=== PATIENT | female | born 1995 | race Caucasian/White ===

== ENCOUNTER 2018-07-16 13:09 | Emergency (ER) | payer BC ==
[~2018-07-16] VITALS: Ht 172.7 cm; Wt 47.6 kg
[2018-07-16 14:36] LABS: ABSOLUTE NEUTROPHILS 5.9 thou/uL (1.4-8.2); BASOPHILS 0.4 % (0.0-2.0); EOSINOPHILS 0.9 % (0.0-3.0); HEMATOCRIT 38.8 % (37.0-47.0); HEMOGLOBIN 13.1 gm/dL (12.0-15.0); LYMPHOCYTES 16.5 % (24.0-44.0); MCH 30.7 pg (26.0-34.0); MCHC 33.7 g/dL (28.0-37.0); MCV 91.1 fL (80.0-100.0); MONOCYTES 9.4 % (1.0-8.0); PLATELET COUNT 223 thou/uL (150-400); POLYS 72.8 % (36.0-66.0); RBC 4.26 mil/uL (4.20-5.00); RDW 13.2 % (10.5-14.5); WBC 8.2 thou/uL (4.0-11.0)
[2018-07-16 14:46] LABS: CALCIUM 8.9 mg/dL (8.5-10.1); CREATININE 0.9 mg/dL (0.6-1.0); POTASSIUM 3.9 mmol/L (3.5-5.1)
[2018-07-16] MEDS ORDERED: VENTOLIN HFA 1818 GM INH (15:21)
[2018-07-16 15:38] VITALS: BP 126/64
== END 2018-07-16 15:40 | disposition home or self-care (01) ==
LOC: ER 13:09
PROVIDERS: Student in an Organized Health Care Education/Training Program
DX: R05 Cough (principal); F17.210 Nicotine dependence, cigarettes, uncomplicated; K31.84 Gastroparesis

== ENCOUNTER 2020-01-17 06:58 | Inpatient (IN) | payer OTHER ==
[~2020-01-17] VITALS: Ht 170.2 cm; Wt 49.9 kg
[~2020-01-17 06:58] MED LIST: VENTOLIN HFA 1818 GM INH
[2020-01-17 07:00] VITALS: BP 115/70
[2020-01-17 07:35] LABS: ABSOLUTE NEUTROPHILS 5.1 thou/uL (1.4-8.2); BASOPHILS 0.4 % (0.0-2.0); HEMATOCRIT 37.9 % (37.0-47.0); HEMOGLOBIN 12.9 gm/dL (12.0-15.0); LYMPHOCYTES 26.3 % (24.0-44.0); MCH 32.4 pg (26.0-34.0); MCHC 34.1 g/dL (28.0-37.0); MONOCYTES 6.4 % (1.0-8.0); PLATELET COUNT 311 thou/uL (150-400); POLYS 65.9 % (36.0-66.0); RBC 3.99 mil/uL (4.20-5.00); RDW 13.3 % (10.5-14.5); WBC 7.7 thou/uL (4.0-11.0)
[2020-01-17 07:40] LABS: URINE BILIRUBIN NEGATIVE (Negative); URINE BLOOD NEGATIVE (Negative); URINE CLARITY CLEAR; URINE COLOR YELLOW; URINE GLUCOSE-RANDOM* NEGATIVE (Negative); URINE KETONES NEGATIVE (Negative); URINE LEUKOCYTES-REFLEX NEGATIVE (Negative); URINE NITRITE-REFLEX NEGATIVE (Negative); URINE PROTEIN (DIPSTICK) NEGATIVE (Negative); URINE SPECIFIC GRAVITY 1.025 (1.005-1.035); URINE UROBILINOGEN 0.2 E.U./dl (0.2-1.0)
[2020-01-17 07:45] LABS: CALCIUM 8.7 mg/dL (8.5-10.1); POTASSIUM 3.8 mmol/L (3.5-5.1)
[2020-01-17 07:51] LABS: ALBUMIN 3.8 g/dL (3.4-5.0); TOTAL BILIRUBIN 0.4 mg/dL (0.2-1.0); TOTAL PROTEIN 7.1 g/dL (6.4-8.2)
[2020-01-17 15:37] VITALS: BP 100/48
[2020-01-17 16:07] VITALS: BP 102/53
[2020-01-17 17:10] VITALS: BP 121/56
[2020-01-17] MEDS ORDERED: OMEPRAZOLE 20 M20 M1 PO (19:09)
[2020-01-17] MEDS ORDERED: MELATONIN10 M3 PO (19:11)
[2020-01-17 19:20] VITALS: BP 103/52
--- NOTE | 2020-01-17 19:46 | NUR ---
Assumed pt late this pm from the ER, admission requirements done. Fluids restarted from the ER, awaiting loading dose of IV abx that should have been given at the ER, as per pharmacy this will be brought up to the [facility]. Mother was at the bedside. POC followed with no sign or verbalization of distress noted. endorsed to the night nurse.
[2020-01-18 05:41] LABS: ABSOLUTE NEUTROPHILS 2.3 thou/uL (1.4-8.2); BASOPHILS 0.7 % (0.0-2.0); EOSINOPHILS 2.2 % (0.0-3.0); HEMOGLOBIN 11.4 gm/dL (12.0-15.0); LYMPHOCYTES 49.1 % (24.0-44.0); MCH 32.2 pg (26.0-34.0); MCHC 33.6 g/dL (28.0-37.0); MCV 96.1 fL (80.0-100.0); MONOCYTES 7.4 % (1.0-8.0); PLATELET COUNT 241 thou/uL (150-400); POLYS 40.6 % (36.0-66.0); RBC 3.54 mil/uL (4.20-5.00); WBC 5.7 thou/uL (4.0-11.0)
--- NOTE | 2020-01-18 05:47 | NUR ---
VSS-AFEBRILE. LUNGS CLEAR-ROOM AIR. ABDOMINAL PAIN WELL CONTROLLED WITH IV MORPHINE PRN. RESTED WELL THROUGH NIGHT WITH FEW NEEDS. NO REPORTED NAUSEA/VOMITING OVERNIGHT. CALLS APPROPRIATELY FOR ANY NEEDED ASSISTANCE.
[2020-01-18 06:03] LABS: CALCIUM 8.2 mg/dL (8.5-10.1); MAGNESIUM 1.8 mg/dL (1.8-2.4); POTASSIUM 3.7 mmol/L (3.5-5.1)
[2020-01-18 08:37] LABS: ALBUMIN 3.1 g/dL (3.4-5.0); DIRECT BILIRUBIN 0.2 mg/dL (<0.1-0.2); TOTAL BILIRUBIN 1.3 mg/dL (0.2-1.0)
[2020-01-18 08:47] VITALS: BP 102/53
[2020-01-18 15:42] VITALS: BP 106/50
[2020-01-18 18:12] VITALS: BP 106/50
[2020-01-18 18:17] VITALS: BP 106/50
[2020-01-18 20:00] VITALS: BP 114/61
[2020-01-19 06:34] LABS: ALBUMIN 2.9 g/dL (3.4-5.0); DIRECT BILIRUBIN 0.1 mg/dL (<0.1-0.2); TOTAL BILIRUBIN 1.1 mg/dL (0.2-1.0); TOTAL PROTEIN 5.9 g/dL (6.4-8.2)
[2020-01-19 08:01] VITALS: BP 111/56
--- NOTE | 2020-01-19 10:00 | NUR ---
Assumed pt care at 7am.Assessment completed.vss.Pt reported sleeping good last night but nervous about going for procedure this am.Emotional support given. Received call from gi lab that pt should get ready for meat pickler.Pt informed and uses bathroom prior to leaving for ercp at 0821 in gi lab.Will continue to monitor.
[2020-01-19 15:10] VITALS: BP 119/76
[2020-01-19 19:14] VITALS: BP 112/69
[2020-01-20] VITALS (7 sets, daily range): BP systolic 104–129; BP diastolic 61–81
--- NOTE | 2020-01-20 02:56 | NUR ---
ASSUMED PT CARE AROUND 1930. AXOX4. INDEPENDENT WITH ADLs. CALLS APPROPRIATELY FOR ASSISTANCE. KEPT NPO POST MN FOR SURGERY IN AM. VSS. NO S/S ACUTE DISTRESS NOTED OR REPORTED AT THIS TIME. WILL CONT TO MONITOR FOR ANY CHANGES IN CONDITION.
[2020-01-20] MEDS ORDERED: OXYCODONE HCL 55 MG PO (10:55)
[2020-01-20] MEDS ORDERED: MIRALAX17 GM PO (14:26)
[2020-01-20] MEDS ORDERED: REGLAN 5 MG TAB5 MG PO (14:26)
[2020-01-20] MEDS ORDERED: IBUPROFEN 200200 M1 PO (14:26)
[2020-01-20] MEDS ORDERED: COLACE 100 MG100 MG PO (14:26)
[2020-01-20] MEDS ORDERED: ZOFRAN 4 MG ORAL4 MG PO (14:26)
--- NOTE | 2020-01-20 15:27 | NUR ---
Assumed pt care this am, received NPO was taken to OR for lap martha. REturned to the unit at noon, 4 lap sites clear, dry and intact. Pain managed with medication, pt is still drowsy at this time. Mother is at the bedside, VS stable. Pt is currently on liquid diet and is tolerated well. POC followed, frequent visits and monitoring done.
[2020-01-21 03:51] VITALS: BP 111/57
[2020-01-21 08:29] VITALS: BP 108/60
--- NOTE | 2020-01-21 08:45 | NUR ---
Assumed pt care at 1900. A/OX4,VSS.Up with SBA to BR d/t IV pole. S/p lap martha with 4 lap sites C/D/I with dermabond. C/o abd pain medicated per EMAR with relief reported. No c/o N/V, reports some flatus encouraged to ambulate more but declined d/t to pain. IVF infusing via right hand w/o any problems. Resting quietly at this time w/o any distress will continue to monitor pt.
[2020-01-21 12:21] VITALS: BP 108/60
--- NOTE | 2020-01-21 12:40 | NUR ---
PT ASSESSED AT START OF SHIFT. PT HAVING GAS PAINS BUT AMBULATING THE HALLS AND PASSING SM AMTS. EATING W/O NAUSEA. ABD LAP SITES INTACT. DC'D PER W/C W/ MOTHER AND ALL BELONGINGS.
--- NOTE | 2020-01-24 10:51 | P ---
[facility] [place] [address] PROCEDURE REPORT Name: ARIK STANTON Room #: 459-P [facility] IN M.R.#: [id number] Admission: 01/17/20 Attend Phys: Mo Farris MD Discharge: 01/21/20 Date of : 89 Report #: [id number] THIS REPORT FOR: cc: FAM - No family physician/PCP FAM - No family physician/PCP Andrei Watkins MD ~ CC: Mo Amador MD [facility] physician/PCP Koko Riggs MD DATE OF SERVICE: 01/19/2020 PROCEDURE PERFORMED: ERCP with sphincterotomy and balloon sweeps. HISTORY OF PRESENT ILLNESS: The patient is a 24-year-old female with intermittent right upper quadrant abdominal pain beginning approximately a week and a half ago. She was noted to have mildly elevated liver function test on admission. Bilirubin yesterday was 1.3, today is 1.1. The patient underwent an ultrasound of the abdomen on 01/17/2020 which showed liver being normal, cholelithiasis with multiple stones identified within the gallbladder. The gallbladder was 4 mm. No pericholecystic fluid was identified. There was tenderness to palpation over the gallbladder. There is dilation of the common bile duct and the stone identified in the common bile duct at the level of the head of the pancreas. The maximum dimension of the common bile duct is 10 mm. Pancreas areas that were visualized was unremarkable. Plan is for ERCP today. DESCRIPTION OF PROCEDURE: The risks and benefits of the procedure were explained to the patient, those risks including but not limited to bleeding, perforation, the risk of sedation as well as the potential risk for posterior superior pancreatitis. She understood these risks and gave informed consent. Both COVID-19 and test were negative. The patient is on IV Zosyn at this time. The procedure was performed in the operating room under general anesthesia. Next, using a standard Olympus ERCP side-viewing scope, the scope was placed in the patient's mouth and advanced under direct vision through the esophagus, stomach and into the second portion of the duodenum. The major papilla was identified and normal in appearance with bile drainage noted. Next, using a [employer] 0.025 dome tipped sphincterotome catheter, the common bile duct was cannulated without difficulty and a cholangiogram was obtained. No obvious filling defects were noted. The common bile duct was dilated approximately 10 mm. The intrahepatic ducts were mildly dilated distally, but proximally were normal. At this point, a guidewire was inserted through the common bile duct up into the intrahepatics. Next, a sphincterotomy was performed without difficulty. Next, the sphincterotome was removed and a balloon catheter was advanced over the wire, both in the right and left hepatic ducts and multiple balloon sweeps were performed. No obvious stones were [facility] [address] [place] [address] PROCEDURE REPORT Name: ARIK STANTON Room #: 459-P [facility] IN M.R.#: [id number] Admission: 01/17/20 Attend Phys: Mo Farris MD Discharge: 01/21/20 Date of : 89 Report #: [id number] removed, but again sometime stones can be removed and not seen as they pass through the sphincterotomy. Next, I performed a balloon occlusion cholangiogram. There were a few air bubbles, but I was able to remove these again with balloon sweeps, no obvious filling defects were noted. At this point, the balloon catheter was removed as well as the wire. Next, a basket was inserted into the common bile duct and several sweeps were performed with the basket. There were no stones or debris removed with the basket. At this point, the scope was then withdrawn and the procedure terminated. The patient tolerated the procedure well. IMPRESSION: No obvious stone within the common bile duct; however sphincterotomy was performed with multiple balloon sweeps. Common bile was dilated approximately 10 mm. Both balloon sweeps and basket sweeps were performed today. RECOMMENDATIONS: 1. Observe the patient post-procedure. 2. Plan is for laparoscopic cholecystectomy tomorrow with Dr. Riggs. 3. Continue to monitor liver function tests. Thank you for allowing me to participate in her care. <ELECTRONICALLY SIGNED> By: Andrei Watkins MD 01/24/20 1051 [id number] [id number] Andrei Watkins MD /nt
--- NOTE | 2020-01-24 16:06 | PATH ---
[facility] [address] [place] [address] PATHOLOGY RPT PROCEDURE Name: ARIK CONNELL Room #: 459-P [facility] IN M.R.#: [id number] Admission: 01/17/20 Date of : [birth year] Discharge: 01/21/20 Report #: [id number] Path Case #: [id number] [facility] Accession Number: [id number] . 01 Material submitted: . gallbladder - GALLBLADDER . 01 Clinical history: . Acute cholelithiasis . 02 Diagnosis: Gallbladder, excision: - Acute cholecystitis, arising in a background of mixed chronic inflammation with focally prominent eosinophils. - Lithiasis. - Negative for malignancy. (MLK:hellen; 01/24/2020) QMS 01/24/2020 1519 Local . 02 Electronically signed: . Anna Carr MD, Pathologist NPI- [id number] . 01 Gross description: . The specimen is received in formalin, labeled "Arik Connell, gallbladder" and consists of an intact purple webb gallbladder measuring 8.8 x 2.3 x 2.2 cm. The margin is inked. Opening reveals that the lumen is packed with thick green bile and multiple yellow multifaceted calculi measuring up to 0.9 cm in diameter. The mucosa is smooth and green with a wall thickness of 0.1 cm. No gross lesions or lymph nodes are identified. Tax Representative sections are submitted in A1. (VICENTA; 01/23/2020) JFQ/JFQ 01/24/2020 1441 Local . 02 Pathologist provided ICD-10: K80.00 . 02 CPT . 717839 Specimen Comment: A courtesy copy of this report has been sent to [phone] Specimen Comment: [phone] Specimen Comment: Report sent to / DR REN Performed at: [address] [id number] MD Nestor Ardon MD Phone: [phone] [address] [address] PATHOLOGY RPT PROCEDURE Name: ARIK CONNELL Room #: 459-P [facility] IN M.R.#: [id number] Admission: 01/17/20 Date of : [birth year] Discharge: 01/21/20 Report #: [id number] Path Case #: [id number] Performed at: [address] [id number] MD Gladis Beach MD Phone: [phone]
== END 2020-01-21 13:21 | disposition home or self-care (01) | DRG 418 ==
LOC: ER 06:58 → 4W 10:48 → EROBS 10:48 → 4W 16:07
PROVIDERS: Emergency Medicine; Internal Medicine Gastroenterology; Nurse Practitioner; ADMIT Hospitalist; ATTEND Hospitalist
PROC: BF141ZZ Fluoroscopy of Gallbladder, Bile Ducts and Pancreatic Ducts using Low Osmolar Contrast (ICD-10-PCS; principal; 2020-01-19)
PROC: 0F798ZZ Dilation of Common Bile Duct, Via Natural or Artificial Opening Endoscopic (ICD-10-PCS; principal; 2020-01-19)
PROC: 0FT44ZZ Resection of Gallbladder, Percutaneous Endoscopic Approach (ICD-10-PCS; 2020-01-20)
DX: K80.00 Calculus of gallbladder with acute cholecystitis without obstruction (principal); E44.1 Mild protein-calorie malnutrition; Z68.1 Body mass index [BMI] 19.9 or less, adult; K31.84 Gastroparesis; F12.90 Cannabis use, unspecified, uncomplicated; K59.00 Constipation, unspecified; K83.8 Other specified diseases of biliary tract; F17.210 Nicotine dependence, cigarettes, uncomplicated; Z20.828 Contact with and (suspected) exposure to other viral communicable diseases; Z79.51 Long term (current) use of inhaled steroids; Z79.899 Other long term (current) drug therapy
CPT/HCPCS: 10040; 50101; 50249; 50411; 50555; 50558; 51297; 51489; 53307; 53310; 53312; 54022; 54118; 55245; 56462; 56525; 56526; 62110; 62900; 70005